=== PATIENT | male | born 1965 | race Two or more races ===

== ENCOUNTER 2018-01-30 13:15 | Emergency (ER) | payer MEDICAID ==
[~2018-01-30] VITALS: Ht 180.3 cm; Wt 81.6 kg
[2018-01-30 13:30] VITALS: BP 113/80
== END 2018-01-30 15:12 | disposition home or self-care (01) ==
LOC: ER 13:15
DX: E11.9 Type 2 diabetes mellitus without complications (principal); G89.29 Other chronic pain; M54.5 Low back pain; Z76.0 Encounter for issue of repeat prescription